=== PATIENT | male | born 1985 | race Caucasian/White ===

== ENCOUNTER 2021-08-24 17:14 | Emergency (ER) | payer MEDICAID ==
[~2021-08-24] VITALS: Ht 175.3 cm; Wt 95.5 kg
[2021-08-24 17:36] VITALS: BP 116/81
[2021-08-24] MEDS ORDERED: ondansetron 4mg rapidly disintigrating tab PO ONE (17:55)
[2021-08-24 18:06] LABS: CLARITY,URINE CLEAR (Clear); COLOR,URINE YELLOW (Yellow); GLUCOSE, URINE NEGATIVE (Neg); KETONES,URINE NEGATIVE (Neg); LEUKOCYTE ESTERASE ,URINE NEGATIVE (Neg); NITRITES, URINE NEGATIVE (Neg); OCCULT BLOOD,URINE NEGATIVE (Neg); PROTEIN,URINE NEGATIVE (Neg); UROBILINOGEN,URINE 0.2 E.U/dL (0.2-1.0)
[2021-08-24 18:08] LABS: UA COLLECTION TYPE CLN CATCH MIDSTREAM
[2021-08-24 18:27] LABS: BASOPHILS % (AUTO) 0.5 % (0-1); EOSINOPHILS # (AUTO) 0.2 X10'3 (0-0.9); EOSINOPHILS % (AUTO) 2.3 % (0-6); HEMATOCRIT 43.9 % (42.0-52.0); HEMOGLOBIN 14.7 g/dl (14.0-17.9); LYMPHOCYTES # (AUTO) 2.8 X10'3 (1.1-4.8); LYMPHOCYTES % (AUTO) 32.7 % (21-51); MEAN CORPUSCULAR HGB CONC 33.4 g/dL (33.0-36.5); MEAN CORPUSCULAR VOLUME 92.7 FL (78-98); MEAN PLATELET VOLUME 6.8 FL (7.4-10.4); MONOCYTES # (AUTO) 0.8 X10'3 (0-0.9); MONOCYTES % (AUTO) 9.2 % (2-12); NEUTROPHILS # (AUTO) 4.8 X10'3 (1.8-7.7); NEUTROPHILS % (AUTO) 55.3 % (42-75); PLATELET COUNT 364 X10'3 (140-440); RED BLOOD COUNT 4.74 X10'6 (4.70-6.10); WHITE BLOOD COUNT 8.7 X10'3 (4.5-11.0)
[2021-08-24 18:42] LABS: ALANINE AMINOTRANSFERASE 103 U/L (12-78); ALBUMIN 3.7 G/DL (3.4-5.0); ALBUMIN/GLOBULIN RATIO 0.9 (1.1-1.5); ALKALINE PHOSPHATASE 68 IU/L (46-116); ANION GAP 8 (8-16); ASPARTATE AMINO TRANSFERASE 48 U/L (10-37); BILIRUBIN,TOTAL 0.3 MG/DL (0.1-1.0); BLOOD UREA NITROGEN 11 MG/DL (7-18); BUN/CREATININE RATIO 11.3 (5.4-32.0); CALCIUM 8.9 MG/DL (8.5-10.1); CHLORIDE 104 MMOL/L (99-107); CREATININE 0.97 MG/DL (0.60-1.10); GLUCOSE 95 MG/DL (70-104); LIPASE 124 U/L (73-393); POTASSIUM 3.7 MMOL/L (3.5-5.1); SODIUM 142 MMOL/L (135-145); TOTAL CARBON DIOXIDE 30.5 MMOL/L (24-32); TOTAL PROTEIN 7.6 G/DL (6.4-8.2); eGFR 87 ML/MIN
[2021-08-24] MEDS ORDERED: ONDA4TAB12 PO (18:52)
== END 2021-08-24 19:02 | disposition home or self-care (01) ==
LOC: ER 17:15
DX: B34.9 Viral infection, unspecified (principal); R11.2 Nausea with vomiting, unspecified; R19.7 Diarrhea, unspecified; R51.9 Headache, unspecified; R53.83 Other fatigue; F17.200 Nicotine dependence, unspecified, uncomplicated; Z79.899 Other long term (current) drug therapy
CPT/HCPCS: 36415; 80053; 81003; 83690; 85025; 99283

== ENCOUNTER 2021-08-29 14:16 | Emergency (ER) | payer MEDICAID ==
[~2021-08-29] VITALS: Ht 175.3 cm; Wt 95.5 kg
[~2021-08-29 14:16] MED LIST: ONDA4TAB12 PO
[2021-08-29 14:45] VITALS: BP 119/79
== END 2021-08-29 18:02 | disposition home or self-care (01) ==
LOC: ER 14:16
DX: F41.9 Anxiety disorder, unspecified (principal); Z79.899 Other long term (current) drug therapy
CPT/HCPCS: 99281

== ENCOUNTER 2021-09-11 19:07 | Emergency (ER) | payer MEDICAID ==
[~2021-09-11] VITALS: Ht 175.3 cm; Wt 90.9 kg
[2021-09-12] MEDS ORDERED: diazepam 5mg tablet PO ONE (02:50)
[2021-09-12 03:12] VITALS: BP 104/72
== END 2021-09-12 03:16 | disposition home or self-care (01) ==
LOC: ER 19:08
DX: F41.9 Anxiety disorder, unspecified (principal); Z79.899 Other long term (current) drug therapy
CPT/HCPCS: 99283

== ENCOUNTER 2021-11-09 16:31 | Emergency (ER) | payer MEDICAID ==
[~2021-11-09] VITALS: Ht 175.3 cm; Wt 100.0 kg
[2021-11-09 16:51] VITALS: BP 121/88
== END 2021-11-09 19:17 | disposition home or self-care (01) ==
LOC: ER 16:31
DX: M79.18 Myalgia, other site (principal)
CPT/HCPCS: 99282

== ENCOUNTER 2022-10-04 10:00 | Emergency (ER) | payer MEDICAID ==
[~2022-10-04] VITALS: Ht 172.7 cm; Wt 90.9 kg
[2022-10-04 11:02] LABS: BASOPHILS # (AUTO) 0.1 X10'3 (0-0.2); BASOPHILS % (AUTO) 1.1 % (0-1); EOSINOPHILS # (AUTO) 0.1 X10'3 (0-0.9); EOSINOPHILS % (AUTO) 1.1 % (0-6); HEMATOCRIT 44.7 % (42.0-52.0); HEMOGLOBIN 14.9 g/dl (14.0-17.9); LYMPHOCYTES # (AUTO) 1.7 X10'3 (1.1-4.8); LYMPHOCYTES % (AUTO) 32.2 % (21-51); MEAN CORPUSCULAR HEMOGLOBIN 31.9 PG (27.0-31.0); MEAN CORPUSCULAR HGB CONC 33.4 g/dL (33.0-36.5); MEAN CORPUSCULAR VOLUME 95.6 FL (78-98); MEAN PLATELET VOLUME 7.3 FL (7.4-10.4); MONOCYTES # (AUTO) 0.5 X10'3 (0-0.9); MONOCYTES % (AUTO) 9.7 % (2-12); NEUTROPHILS # (AUTO) 2.9 X10'3 (1.8-7.7); NEUTROPHILS % (AUTO) 55.9 % (42-75); PLATELET COUNT 275 X10'3 (140-440); RED BLOOD COUNT 4.67 X10'6 (4.70-6.10); WHITE BLOOD COUNT 5.3 X10'3 (4.5-11.0)
[2022-10-04 11:11] LABS: ALANINE AMINOTRANSFERASE 24 U/L (12-78); ALBUMIN 4.1 G/DL (3.4-5.0); ALBUMIN/GLOBULIN RATIO 1.1 (1.1-1.5); ALKALINE PHOSPHATASE 69 IU/L (46-116); ANION GAP 10 (8-16); ASPARTATE AMINO TRANSFERASE 18 U/L (10-37); BILIRUBIN,TOTAL 0.6 MG/DL (0.1-1.0); BLOOD UREA NITROGEN 19 MG/DL (7-18); BUN/CREATININE RATIO 18.8 (10.0-20.0); CHLORIDE 102 MMOL/L (99-107); CREATININE 1.01 MG/DL (0.60-1.10); GLUCOSE 102 MG/DL (70-104); POTASSIUM 4.1 MMOL/L (3.5-5.1); SODIUM 138 MMOL/L (135-145); TOTAL CARBON DIOXIDE 26.1 MMOL/L (24-32); TOTAL PROTEIN 7.8 G/DL (6.4-8.2); eGFR 83 ML/MIN
[2022-10-04 11:21] LABS: ETHANOL < 0.010 GM/DL (0.0-0.010)
[2022-10-04 12:08] LABS: CLARITY,URINE CLEAR (Clear); COLOR,URINE YELLOW (Yellow); GLUCOSE, URINE NEGATIVE (Neg); KETONES,URINE NEGATIVE (Neg); LEUKOCYTE ESTERASE ,URINE NEGATIVE (Neg); NITRITES, URINE NEGATIVE (Neg); OCCULT BLOOD,URINE NEGATIVE (Neg); PROTEIN,URINE NEGATIVE (Neg); UROBILINOGEN,URINE 0.2 E.U/dL (0.2-1.0)
[2022-10-04 12:13] LABS: UA COLLECTION TYPE CLN CATCH MIDSTREAM
[2022-10-04 12:17] LABS: URINE AMPHETAMINE SCREEN NEGATIVE (Neg); URINE BARBITUATE SCREEN NEGATIVE (Neg); URINE BENZODIAZEPINES SCREEN NEGATIVE (Neg); URINE CANNABINOID SCREEN NEGATIVE (Neg); URINE COCAINE SCREEN NEGATIVE (Neg); URINE METHADONE SCREEN NEGATIVE (Neg); URINE OPIATE SCREEN NEGATIVE (Neg); URINE PHENCYCLIDINE SCREEN NEGATIVE (Neg)
--- NOTE | 2022-10-04 13:00 | NUR ---
Pt changed into green scubs. Made a phone call to his mom. Ate mostof lunch. Pt currently resting on bed. No acute distress noted at this time.
--- NOTE | 2022-10-04 14:14 | NUR ---
PT RESTING ON BED. NO ACUTE DISTRESS NOTED AT THIS TIME.
[2022-10-04] MEDS ORDERED: HYDR-3686 PO (15:13)
[2022-10-04] MEDS ORDERED: QUET400T13 PO (15:13)
[2022-10-04] MEDS ORDERED: FLUO-211 PO (15:13)
--- NOTE | 2022-10-04 16:27 | NUR ---
Mom is at bedside with pt.
--- NOTE | 2022-10-04 17:21 | NUR ---
Mother still at bedside. Pt resting on bed. No acute distress noted at this time.
--- NOTE | 2022-10-04 17:34 | NUR ---
Pt up eating dinner tray.
--- NOTE | 2022-10-04 18:47 | NUR ---
Deandra oh in [facility] - 10/04/22 at 1847 by BARBI PACKET SENT [facility]
--- NOTE | 2022-10-04 18:51 | NUR ---
The patient was moved to bed 25 from the main ER. He was made aware of the plan of care and oriented to the unit. His affect is flat and his speech is soft and monotone. He is pleasant. He reports he has been medication compliant. He reports his anxiety is very high. He stated that he has had a life long hx of depression and has been feeling suicidal today without a plan.
[2022-10-04] MEDS ORDERED: hydrOXYzine 25 MG tablet PO PRN (19:10)
[2022-10-04] MEDS: FLUoxetine 20mg capsule PO SCH (19:59)
--- NOTE | 2022-10-04 19:59 | NUR ---
The patient is resting on his bed.
--- NOTE | 2022-10-04 20:49 | NUR ---
The patient is resting on his bed.
[2022-10-04] MEDS ORDERED: quetiapine fumarate ER 300mg tablet PO SCH (21:00)
[2022-10-04] MEDS ORDERED: QUETIAPINE 50 MG TAB.SR.24H PO SCH (21:00)
--- NOTE | 2022-10-04 21:44 | NUR ---
The patient has been accepted at [facility]. [facility] will transport in the AM around 10am.
--- NOTE | 2022-10-04 22:31 | NUR ---
The patient appears to be sleeping
--- NOTE | 2022-10-04 23:51 | NUR ---
The patient appears to be sleeping
--- NOTE | 2022-10-05 01:09 | NUR ---
The patient appears to be sleeping
--- NOTE | 2022-10-05 02:58 | NUR ---
The patient appears to be sleeping
[2022-10-05 05:47] VITALS: BP 105/68
--- NOTE | 2022-10-05 06:08 | NUR ---
THe patient appears have slept well during the night.
--- NOTE | 2022-10-05 06:54 | NUR ---
Patient sleeping supine. No distress observed. Continue to monitor.
--- NOTE | 2022-10-05 08:19 | NUR ---
Patient eating breakfast. No distress observed. Continue to monitor.
[2022-10-05] MEDS: FLUoxetine 20mg capsule PO SCH (08:44)
== END 2022-10-05 09:40 ==
LOC: ER 10:00
DX: R45.851 Suicidal ideations (principal); Z20.822 Contact with and (suspected) exposure to COVID-19; F31.9 Bipolar disorder, unspecified
CPT/HCPCS: 36415; 80053; 80305; 80320; 81003; 84443; 85025; 87811; 99285; Q0177